=== PATIENT | female | born 1985 | race Caucasian/White ===

== ENCOUNTER 2017-10-12 17:36 | Observation (INO) ==
--- NOTE | 2017-10-12 17:54 | OB/GYN Progress Note ---
Date of Encounter: 10/12/17 Time of Encounter: 17:55 - Assessment and Plan (1) and not yet delivered in third trimester Current Visit: Yes Status: Acute (2) 31 weeks gestation of Current Visit: Yes Status: Acute (3) labor in second trimester with delivery in third trimester Current Visit: Yes Status: Acute We will watch and get urinalysis Qualifiers: Fetus number: single or unspecified fetus Qualified Code(s): O60.13X0 - labor second trimester with delivery third trimester, not applicable or unspecified Subjective - Subjective Interval history: Patient is a 32-year-old 6 para 4014 at 31-5/7 weeks who presented to labor and delivery complaining of lower back pain vaginal pressure since 4 AM yesterday. She states she has been having back pain all day yesterday and through the night this morning she started having a lot of vaginal pressure call the office and advised to come to labor and delivery patient states that she has had no leaking of fluid denies any dysuria urgency frequency and no vaginal discharge. Patient did admit that she used marijuana at the beginning of the and has not used anything recently. Patient's urine is very cloudy and patient states she does drink lots of fluids through the day. Patient states she typically does not show contractions because she has back labor and most of the contractions are in the lower back. Antepartum ROS: contractions Objective - Exam FHR: category 1 FHR comments: heart tones 140s reassuring no contraction seen at this time Auscultation: bilateral: normal Abdomen: Present: gravid Uterus: Present: firm Cervical dilation: closed Cervix effacement: thick station: ball
[2017-10-12 18:40] LABS: Bilirubin,Urine Negative (Negative); Blood,Urine Negative (Negative); Clarity,Urine Turbid (Clear); Color,Urine Yellow (Yellow); Glucose,Urine (UA) Normal (Normal); Ketones,Urine Negative (Negative); Leukocyte Esterase,Urine Negative (Negative); Nitrite,Urine Negative (Negative); Protein,Urine Negative (Neg-Trace); Specific Gravity,Urine 1.023 (1.010-1.025); Urobilinogen,Urine Normal (Normal)
[2017-10-12 18:44] LABS: Bacteria,Urine None Seen per hpf (None-Few); Hyaline Casts,Urine None Seen per lpf (None-Few); Squamous Epithelial Cell,Urine Many per lpf (None-Few); WBC,Urine 0-3 per hpf (0-3)
[2017-10-12] MEDS ORDERED: Terbutaline 1 MG/ML VIAL SQ ONE (18:45)
[2017-10-12 19:10] LABS: Amphetamine Screen,Urine Negative ng/mL (Cutoff=1000); Barbiturate Screen,Urine Negative ng/mL (Cutoff=200); Benzodiazepines Screen,Urine Negative ng/mL (Cutoff=200); Cannabinoid Screen,Urine Positive ng/mL (Cutoff = 50); Cocaine Screen,Urine Negative ng/mL (Cutoff= 300); Opiate Screen,Urine Negative ng/mL (Cutoff=300); Phencyclidine Screen,Urine Negative ng/mL (Cutoff=25)
--- NOTE | 2017-10-12 20:49 | OB/GYN Progress Note ---
Date of Encounter: 10/12/17 Time of Encounter: 20:30 - Assessment and Plan (1) and not yet delivered in third trimester Current Visit: Yes Status: Acute (2) 31 weeks gestation of Current Visit: Yes Status: Acute (3) labor in second trimester with delivery in third trimester Current Visit: Yes Status: Acute We will watch and get urinalysis Patient will be discharged home instructions to follow-up in the office labor precautions given Qualifiers: Fetus number: single or unspecified fetus Qualified Code(s): O60.13X0 - labor second trimester with delivery third trimester, not applicable or unspecified Subjective - Subjective Interval history: Patient states contractions spaced out after she got a dose of terbutaline no further contractions seen no further cervical change and patient was advised TO SEND HER HOME SINCE URINALYSIS IS NEGATIVE AND WE DO NOT SEE ANYTHING SUGGESTIVE OF LABOR. Antepartum ROS: contractions Objective - Vital Signs Vital Signs: Intake and Output 10/12/17 10/12/17 10/12/17 07:59 15:59 23:59 Other: Weight 103.4 kg Patient Weight 10/12/17 23:59 Weight 103.4 kg - Exam FHR: category 1 FHR comments: heart tones 140s reassuring no contraction seen - Labs Labs: Abnormal lab results Urine Clarity Turbid (Clear) A 10/12/17 18:00 Urine Microscopic RBC 3-5 per hpf (0-3) H 10/12/17 18:00 Ur Squamous Epith Cells Many per lpf (None-Few) H 10/12/17 18:00 U Marijuana (THC) Screen Positive ng/mL (Cutoff = 50) H 10/12/17 18:00
== END 2017-10-12 20:00 | disposition home or self-care (01) ==
LOC: 1NENULAB
PROVIDERS: ADMIT Advanced Practice Midwife; ATTEND Advanced Practice Midwife

== ENCOUNTER 2017-10-26 16:59 | Observation (INO) ==
[2017-10-26] MEDS ORDERED: Ringers Solution, Lactated 1,000 ML IVC SCH (17:45)
[2017-10-26 18:01] LABS: Basophils % 0.3 %; Eosinophils # 0.2 K/mcL (0.0-0.6); Eosinophils % 1.7 %; Hematocrit 36.8 % (35.3-44.9); Hemoglobin 13.2 g/dL (11.5-15.4); Immature Granulocytes % 0.4 % (0-4); Lymphocytes # 3.7 K/mcL (0.6-4.6); Lymphocytes % 33.4 %; Mean Corpuscular HGB Conc 35.9 g/dL (31.6-35.5); Mean Corpuscular Hemoglobin 32.4 pg (28.0-33.3); Mean Corpuscular Volume 90.2 fL (83.0-100.0); Monocytes # 0.7 K/mcL (0.0-1.3); Monocytes % 6.7 %; Neutrophils # 6.4 K/mcL (1.6-8.9); Platelet Count 262 K/mcL (140-400); Red Blood Count 4.08 M/mcL (3.82-4.97); Red Cell Distribution Width 13.1 % (11.5-14.5); Segmented Neutrophils % 57.5 %
[2017-10-26 18:03] LABS: Bilirubin,Urine Negative (Negative); Blood,Urine Negative (Negative); Clarity,Urine Clear (Clear); Color,Urine Yellow (Yellow); Glucose,Urine (UA) Normal (Normal); Ketones,Urine Negative (Negative); Leukocyte Esterase,Urine Negative (Negative); Nitrite,Urine Negative (Negative); Protein,Urine Negative (Neg-Trace); Specific Gravity,Urine 1.023 (1.010-1.025); Urobilinogen,Urine Normal (Normal)
[2017-10-26 18:29] LABS: Amphetamine Screen,Urine Negative ng/mL (Cutoff=1000); Barbiturate Screen,Urine Negative ng/mL (Cutoff=200); Benzodiazepines Screen,Urine Negative ng/mL (Cutoff=200); Cannabinoid Screen,Urine Positive ng/mL (Cutoff = 50); Cocaine Screen,Urine Negative ng/mL (Cutoff= 300); Opiate Screen,Urine Negative ng/mL (Cutoff=300); Phencyclidine Screen,Urine Negative ng/mL (Cutoff=25)
--- NOTE | 2017-10-26 19:02 | OB/GYN Progress Note ---
Date of Encounter: 10/26/17 Time of Encounter: 19:00 - Assessment and Plan (1) 33 weeks gestation of Current Visit: Yes Status: Acute (2) Decreased movement Current Visit: Yes Status: Acute IV fluid bolus Reactive NST. Prolonged monitoring x 4 hours after 1 noted decel; remainder of strip reactive. Patient states she would like to be discharged. Encouraged patient to continue to be aware of movements and complete kick counts. Patient to return with any decrease in movement. Follow up in office with routine care and PRN Qualifiers: Fetus number: single or unspecified fetus Trimester: third trimester Qualified Code(s): O36.8130 - Decreased movements, third trimester, not applicable or unspecified Subjective - Subjective Interval history: 32-year-old female at 33 weeks and 5 days presented to labor and delivery with chief complaint of decreased movement. Patient's has been compensated by polyhydramnios and asymmetrical IUGR. Patient states all day she has not had any good movements. She did try kick counts at home with no results. She decided to come in for monitoring. She denies any vaginal bleeding, cramping, loss of fluid. Antepartum ROS: no loss of fluid, no vaginal bleeding, no movement normal , no contractions Objective - Vital Signs Vital Signs: Intake and Output 10/26/17 10/26/17 10/26/17 07:59 15:59 23:59 Other: Weight 104 kg Patient Weight 10/26/17 23:59 Weight 104 kg - Exam FHR: auscultation normal, category 1 (Deceleration noted, majority of tracing category one) Auscultation: bilateral: normal Abdomen: Present: normal appearance, soft, gravid - Labs Labs: Abnormal lab results MCHC 35.9 g/dL (31.6-35.5) H 10/26/17 17:45 U Marijuana (THC) Screen Positive ng/mL (Cutoff = 50) H 10/26/17 17:45
== END 2017-10-26 21:12 | disposition home or self-care (01) ==
LOC: 1NENULAB
PROVIDERS: ADMIT Obstetrics & Gynecology; ATTEND Obstetrics & Gynecology

== ENCOUNTER 2017-12-02 05:27 | Inpatient (IN) ==
[2017-12-02] MEDS ORDERED: Ringers Solution, Lactated 1,000 ML IVC ONE (05:44)
[2017-12-02] MEDS ORDERED: Famotidine 20 MG/2 ML VIAL IVP ONE (05:44)
[2017-12-02] MEDS ORDERED: CeFAZolin Premix DUPLEX 2,000 MG/50 ML BAG IVPB ONE (05:44)
[2017-12-02] MEDS ORDERED: Metoclopramide 10 MG/2 ML VIAL IVP ONE (05:44)
[2017-12-02] MEDS ORDERED: Oxytocin 20 units/ LR 1000 mL 20 UNIT/1,000 ML BAG IVC SCH ×2 (05:45→11:55)
[2017-12-02] MEDS ORDERED: Ringers Solution, Lactated 1,000 ML IVC SCH (05:45)
[2017-12-02] MEDS ORDERED: Ringers Solution, Lactated 1,000 ML ONE ×2 (05:48→07:58)
--- NOTE | 2017-12-02 05:58 | OB/GYN History & Physical ---
Date of Encounter: 12/02/17 Time of Encounter: 05:50 Assessment and Plan (1) 39 weeks gestation of Current visit: Yes Status: Acute Admit to L&D for primary low transverse for breech presentation Labs per normal Anesthesia consult Antibiotics and other preoperative medications per usual Dr. Hooper present in house for surgery (2) Breech presentation of fetus Current visit: Yes Status: Acute Qualifiers: Fetus number: single or unspecified fetus Qualified Code(s): O32.1XX0 - Maternal care for breech presentation, not applicable or unspecified History of Present Illness Chief complaint: Admit for primary section HPI: Ms. Delgado is a 32 year old female at 39 weeks and 0 days gestation with an EDB of 12/09/17 dated by LMP. She presents for scheduled primary C- section due to breech presentation. Bedside ultrasound confirmed fetus is in breech presentation. She denies contractions, LOF, vaginal bleeding and reports positive movement. Her course is complicated by obesity. Labs: A- GBS - Hep B - HIV - Rubella equivocal Varicella immune Maternal Quad Screen normal Past Med Surg Social Fam HX - Past Medical History Medical history: asthma Psychiatric history: anxiety - Past Surgical History Surgical History: no surgical history - Social History Smoking Status: Former smoker Smokeless Tobacco Status: No Alcohol use: none Drug use: marijuana - Family History Mother Living Status: Still Living Hx Family Cardiac Disorders: Yes Hx Family Respiratory Disorders: No Hx Family Cancer: No Hx Family GI Disorders: No Hx Family Endocrine Disorder: Yes Hx Family Neuromuscular Disorders: No Hx Family Neurologic Disorders: No Hx Family HEENT Disorders: No Hx Family Autoimmune Disorders: No Obstetrical History - Pregnancies : 6 Para: 4 Term: 4 (1: 12/26/02, Male, 4lbs 2oz, ; 2: 10/20/2007, Female, 7lbs 2oz, ; 3: 10/24/2009, Male, 8lbs 12oz, ; 4: 05/10/2014, Male, 7lbs 1oz, ) : 0 Ab's: 1 (MAB 6wks) Livin Medications and Allergies Tylenol 650 mg PO PRN PRN 10/12/17 [History] Cetirizine HCl [Zyrtec] 1 tab PO DAILY 11/15/17 [History] Docusate [Colace] 1 tab PO TID 11/15/17 [History] valACYclovir [Valtrex] 1 tab PO DAILY 11/15/17 [History] 3 Allergy/AdvReac Type Severity Reaction Status Date / Time No Known Allergies Allergy Verified 11/15/17 13:53 Review of System OB All systems PM: reviewed and no additional remarkable complaints except as stated Exam - Constitutional Constitutional: well developed, well nourished, no acute distress, obese - HEENT HEENT: PERRL, Normocephaly, Mucus Membranes Moist - Neck Neck exam: full ROM - Lungs Respiratory exam: CTAB - Cardiovascular Cardiovascular exam: RRR, +S1, +S2 - Breasts Breast: bilateral: normal - Abdomen Abdomen: Present: bowel sounds normal, gravid - Extremities Extremities exam: radial pulses palpable and symmetrical - Uterus Uterus exam: Present: normal size, normal contour Results All other labs normal.
[2017-12-02 06:37] LABS: Amphetamine Screen,Urine Negative ng/mL (Cutoff=1000); Barbiturate Screen,Urine Negative ng/mL (Cutoff=200); Benzodiazepines Screen,Urine Negative ng/mL (Cutoff=200); Cannabinoid Screen,Urine Negative ng/mL (Cutoff = 50); Cocaine Screen,Urine Negative ng/mL (Cutoff= 300); Opiate Screen,Urine Negative ng/mL (Cutoff=300); Phencyclidine Screen,Urine Negative ng/mL (Cutoff=25)
[2017-12-02] MEDS ORDERED: *HR* FentaNYL (PF) 100 MCG/2 ML VIAL ONE (07:13)
[2017-12-02] MEDS ORDERED: Morphine Sulfate/PF 5mg/10mL Vial ONE (07:13)
[2017-12-02] MEDS ORDERED: *HR* Phenylephrine 10 MG/ML VIAL ONE (07:16)
[2017-12-02] MEDS ORDERED: *HR* Oxytocin 10 UNIT/ML VIAL IM ONE (07:17)
--- NOTE | 2017-12-02 07:37 | Anesthesia Evaluation PreOp ---
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 History: Denies Any Significant HX Other Medical History: Denies Any Significant HX Anesthesia History: No Prior Anesthetic Complications, Past Anesthesia (lap yelitza) : Yes (39 weeks, breech presentation) Alcohol Use: none Drug use: marijuana Medications and Allergies Tylenol 650 mg PO PRN PRN 10/12/17 [History] Cetirizine HCl [Zyrtec] 1 tab PO DAILY 11/15/17 [History] Docusate [Colace] 1 tab PO TID 11/15/17 [History] valACYclovir [Valtrex] 1 tab PO DAILY 11/15/17 [History] 3 Allergy/AdvReac Type Severity Reaction Status Date / Time No Known Allergies Allergy Verified 11/15/17 13:53 - Meds/Allergy Pre-op Review Medications Reviewed: Yes Allergies Reviewed: Yes Beta Blockers on Current Med List: No Anesthesia Results - Labs Laboratory Tests 07/12/17 09/06/17 11/15/17 11:12 10:20 13:50 WBC 12.0 H Hgb 13.4 Hct 37.6 Plt Count 298 PT INR APTT Sodium 135 L Potassium 3.9 Chloride 105 BUN 4 L Creatinine 0.53 L 11/15/17 14:35 WBC Hgb Hct Plt Count PT 11.2 INR 1.0 APTT 28.1 Sodium Potassium Chloride BUN Creatinine Anesthesia Exam O2 Sat Height 1.65 m Weight 106.594 kg Height: 65 Weight: 106 NPO (# of Hours): greater than 8 hours - HEENT Pupil (Motor): Pupils equal Mallampati: I Teeth: Normal Oral Opening: Greater than 3 - LEAD LEVEL DESIGNER LOC: Oriented LEAD LEVEL DESIGNER Motor: Normal RUE, Normal LUE, Normal RLE, Normal LLE, Normal Face LEAD LEVEL DESIGNER Sensory: Normal: RUE, LUE, RLE, LLE, Face - Cardiac Rhythm: Regular Murmur: None JVD: No Carotid Bruit: No - Pulmonary Breath Sounds: bilateral Clear Respiratory Effort: Symmetrical Anesthesia Assess/Plan ASA Score: 2 Modified Gary Scale for Level of Consciousness: Cooperative, oriented, and tranquil Anesthetic Plan: Regional Monitoring Plan: Standard Monitors Recovery Plan: PACU
[2017-12-02] MEDS ORDERED: Clindamycin 900 MG/50 ML 900 MG/50 ML IV.SOLN IVPB ONE (07:39)
[2017-12-02] MEDS ORDERED: MetroNIDAZOLE 500 MG/100 ML 500 MG/100 ML BAG IVPB ONE (07:39)
[2017-12-02] MEDS ORDERED: Ondansetron 4 MG/2 ML VIAL ONE (07:46)
[2017-12-02] MEDS ORDERED: EPHEDrine 50 MG/ML VIAL ONE (07:59)
[2017-12-02 08:03] LABS: Basophils % 0.3 %; Eosinophils # 0.3 K/mcL (0.0-0.6); Eosinophils % 2.2 %; Hematocrit 38.8 % (35.3-44.9); Hemoglobin 14.2 g/dL (11.5-15.4); Immature Granulocytes % 0.7 % (0-4); Lymphocytes # 3.4 K/mcL (0.6-4.6); Lymphocytes % 27.1 %; Mean Corpuscular HGB Conc 36.6 g/dL (31.6-35.5); Mean Corpuscular Hemoglobin 32.6 pg (28.0-33.3); Mean Corpuscular Volume 89.2 fL (83.0-100.0); Mean Platelet Volume 12.1 fL (9.4-12.4); Monocytes # 0.9 K/mcL (0.0-1.3); Monocytes % 7.3 %; Neutrophils # 7.8 K/mcL (1.6-8.9); Platelet Count 270 K/mcL (140-400); Red Blood Count 4.35 M/mcL (3.82-4.97); Red Cell Distribution Width 13.4 % (11.5-14.5); Segmented Neutrophils % 62.4 %
[2017-12-02] MEDS ORDERED: Ketorolac 30 MG/ML VIAL IVP PRN (08:36)
[2017-12-02] MEDS ORDERED: *HR* OxyCODONE Immed Rel 5 MG TABLET PO PRN (08:36)
[2017-12-02] MEDS ORDERED: *HR* Nalbuphine 20 MG/ML AMPUL IVP PRN (08:39)
--- NOTE | 2017-12-02 09:20 | OB/GYN Procedure Note ---
Section - Date of procedure: 12/02/17 Preop diagnosis: breech Post-op diagnosis: other (Double footling breech, anterior uterine varicosities) Procedure: section, primary low transverse Surgeon: Juliette Hooper Estimated blood loss (cc): 800 Was there an assistant front end manager present: Yes Income Tax Return Preparer: Jessy Jordan Manager Export: Chino Henao Anesthesia Type: Spinal section complications: other (Anterior low uterine varicosities) Disposition: L&D Recovery Room Specimens: Placenta, Cord segment - Infant (s) A Delivery Date: 12/02/17 Infant Delivery Time: 08:23 Presentation: footling breech (Double) Route of delivery: other Gender: Female Viability: Viable Pounds: 5 Ounces: 14 at 1 minute: 8 at 5 minutes: 9 Specimens collected: cord blood Placenta: uterine exploration, complete extraction Cord: 3 umbilical vessels - Narrative Narrative: The patient was brought to the operating room, sign in completed, given spinal anesthesia then prepped and draped in the usual sterile fashion. A timeout was completed. A Pfannenstiel skin incision was then made and sharply dissected down to the fascia. The fascia was then incised in the midline and extended bluntly and sharply bilaterally. 2 straight Alton clamps are placed on the inferior fascial edge and the fascia was bluntly and sharply dissected from rectus muscles, this was repeated superiorly. The rectus muscles were bluntly and sharply bissected. Peritoneum was bluntly entered and extended bluntly superiorly and inferiorly. A bladder blade was placed to protect the bladder. There were prominent varicosities in the lower uterine segment anteriorly. The Vesicouterine peritoneum was incised above these with Metzenbaum scissors and extended laterally then the bladder flap was reflected inferiorly and the bladder blade was replaced to protect the bladder. Active and aggressive bleeding was seen at this time. Hemostats were used to try to control it but unsuccessful. A low transverse incision was then made in the lower uterine segment down to the amnion. This was then bluntly extended laterally. The amnion was then bluntly entered, clear fluid was seen, and the infant was delivered in double footling breech presentation. The was suctioned on the operating field then was handed to the nursery care team. A cord segment was obtained. IV Pitocin was started. The placenta manually extracted intact. The uterine cavity was digitally inspected and noted to be clear and then was wiped clean with a moist lap sponge. Tubes and ovaries were inspected and found to be grossly normal. A ring clamp was used to dilate the cervix and then discarded off the operating field. Ring clamps were placed on the edge of the uterine incision and the uterine incision was closed using 0 Vicryl suture in a running locking fashion. A second imbricating layer completed the uterine closure. Good hemostasis was achieved. The pelvic cavity was copiously irrigated with sterile water and good hemostasis was again noted. Peritoneal edges and rectus muscles were inspected and good hemostasis was achieved. The fascia was then closed using an 0 PDS loop in a running nonlocking fashion. Subcutaneous tissue was irrigated with sterile water good hemostasis was achieved. The subcutaneous layer was closed with 2-0 Monocryl in a running nonlocking fashion. The skin was then closed with 4-0 Monoicryl in a subcuticular fashion. A FEMI dressing was placed. Issa was noted to be draining clear yellow urine at the end of the procedure. All sponge and instrument counts were correct at the end of the procedure
[2017-12-02] MEDS ORDERED: *HR* Ropivacaine/PF 0.2% 20 ML VIAL ONE (09:26)
[2017-12-02] MEDS ORDERED: Sennosides 8.6 MG TABLET PO PRN (11:55)
[2017-12-02] MEDS ORDERED: Ondansetron 4 MG/2 ML VIAL IVP PRN (11:55)
[2017-12-02] MEDS ORDERED: Metoclopramide 10 MG/2 ML VIAL IVP PRN (11:55)
[2017-12-02] MEDS ORDERED: Simethicone 80 MG TAB.CHEW PO PRN (11:55)
[2017-12-02] MEDS ORDERED: Rho Immune Globulin 1,500 UNIT SYRINGE IM ONE (11:55)
[2017-12-02] MEDS: *HR* OxyCODONE/APAP 5/325 TABLET PO PRN (20:09)
[2017-12-02] MEDS: Ibuprofen 600 MG TABLET PO SCH (20:10)
[2017-12-03] MEDS: *HR* OxyCODONE/APAP 5/325 TABLET PO PRN ×3 (01:52→11:17)
[2017-12-03 04:42] LABS: Basophils # 0.1 K/mcL (0.0-0.2); Basophils % 0.4 %; Eosinophils # 0.2 K/mcL (0.0-0.6); Eosinophils % 1.6 %; Hematocrit 33.3 % (35.3-44.9); Immature Granulocytes % 0.7 % (0-4); Lymphocytes # 3.4 K/mcL (0.6-4.6); Lymphocytes % 24.5 %; Mean Corpuscular HGB Conc 35.1 g/dL (31.6-35.5); Mean Corpuscular Hemoglobin 32.1 pg (28.0-33.3); Mean Corpuscular Volume 91.5 fL (83.0-100.0); Mean Platelet Volume 11.2 fL (9.4-12.4); Monocytes # 0.9 K/mcL (0.0-1.3); Monocytes % 6.6 %; Neutrophils # 9.2 K/mcL (1.6-8.9); Platelet Count 217 K/mcL (140-400); Red Blood Count 3.64 M/mcL (3.82-4.97); Red Cell Distribution Width 13.2 % (11.5-14.5); Segmented Neutrophils % 66.2 %
[2017-12-03 05:06] LABS: Hemoglobin 11.7 g/dL (11.5-15.4)
[2017-12-03] MEDS: Ibuprofen 600 MG TABLET PO SCH ×2 (05:36→11:17)
[2017-12-03 07:53] VITALS: BP 112/78
[2017-12-03] MEDS ORDERED: Prenatal Vit/FA 1 EACH TABLET PO SCH (09:00)
--- NOTE | 2017-12-03 09:25 | Discharge Summary ---
Date of Encounter: 12/03/17 Time of Encounter: 09:18 - Discharge Diagnosis (1) delivery delivered Priority: Primary Status: Acute Comments: Pt meeting all post-op milestones. She is ambulating without difficulty, tolerating a regular diet, voiding, and passing flatus. 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 She is requesting discharge home today. - Discharge Medications Prescriptions: OxyCODONE/APAP 5/325 [Percocet 5/325 MG] 1 each PO Q4HR PRN 5 Days #30 tablet PRN Reason: Moderate pain 4-6 Ibuprofen [Motrin] 600 mg PO Q6HR #60 tablet Docusate [Colace] 100 mg PO BID #60 capsule Home Medications: Cetirizine HCl [Zyrtec] 1 tab PO DAILY 11/15/17 [History] valACYclovir [Valtrex] 1 tab PO DAILY 11/15/17 [History] Docusate [Colace] 100 mg PO BID #60 capsule 12/03/17 [Rx] Ibuprofen [Motrin] 600 mg PO Q6HR #60 tablet 12/03/17 [Rx] OxyCODONE/APAP 5/325 [Percocet 5/325 MG] 1 each PO Q4HR PRN 5 Days #30 tablet [Rx] Simethicone [Gas-X] 80 mg PO TID PRN tab.chew 12/03/17 [Rx] Allergies/Adverse Reactions: 3 Allergy/AdvReac Type Severity Reaction Status Date / Time No Known Allergies Allergy Verified 11/15/17 13:53 Data Procedures and tests throughout hospitalization: Laboratory Tests 12/02/17 12/02/17 12/03/17 06:15 06:15 04:18 WBC 12.5 H 13.9 H RBC 4.35 3.64 L Hgb 14.2 11.7 D Hct 38.8 33.3 L MCV 89.2 91.5 MCH 32.6 32.1 MCHC 36.6 H 35.1 RDW 13.4 13.2 Plt Count 270 217 MPV 12.1 11.2 Immature Gran % 0.7 0.7 Seg Neutrophils % 62.4 66.2 Lymphocytes % 27.1 24.5 Monocytes % 7.3 6.6 Eosinophils % 2.2 1.6 Basophils % 0.3 0.4 Neutrophils # 7.8 9.2 H Lymphocytes # 3.4 3.4 Monocytes # 0.9 0.9 Eosinophils # 0.3 0.2 Basophils # 0.0 0.1 Urine Opiates Screen Negative Ur Barbiturates Screen Negative Ur Phencyclidine Scrn Negative Ur Amphetamines Screen Negative U Benzodiazepines Scrn Negative Urine Cocaine Screen Negative U Marijuana (THC) Screen Negative Labs on day of discharge: Labs from last 24 hours 12/03/17 04:18 WBC 13.9 H RBC 3.64 L Hgb 11.7 D Hct 33.3 L MCV 91.5 MCH 32.1 MCHC 35.1 RDW 13.2 Plt Count 217 MPV 11.2 Immature Gran % 0.7 Seg Neutrophils % 66.2 Lymphocytes % 24.5 Monocytes % 6.6 Eosinophils % 1.6 Basophils % 0.4 Neutrophils # 9.2 H Lymphocytes # 3.4 Monocytes # 0.9 Eosinophils # 0.2 Basophils # 0.1 Date of admission: 12/02/17 05:27 Discharging clinician: Janeen Ruelas Anticipated date of discharge: 12/03/17 - Patient Status Disposition: Home, Self-Care Condition: Good Functional capacity at discharge: independent ambulation Overall status at discharge: patient is progressing back to baseline - Discharge Instructions Follow Up With: Juliette Hooper MD [Partnered Physician] - - Diet and Activity Activity: increase activity as tolerated Diet: regular diet Hospital Course Reason for admission: section Delivery: section Episiotomy: none Laceration: none Other procedures: none complications: none Discharge diagnosis: IUP at term delivered [place] baby: female Hospital course: - Date of procedure: 12/02/17 Preop diagnosis: breech Post-op diagnosis: other (Double footling breech, anterior uterine varicosities) Procedure: section, primary low transverse Surgeon: Juliette Hooper Estimated blood loss (cc): 800 Was there an senior administrative assistant present: Yes Barrel Lathe Operator Outside: Jessy Jordan [employer]ad[employer] Plans Staff Officer: Chino Henao Anesthesia Type: Spinal section complications: other (Anterior low uterine varicosities) Disposition: L&D Recovery Room Specimens: Placenta, Cord segment - (s) Infant A Infant Delivery Date: 12/02/17 Delivery Time: 08:23 Presentation: footling breech (Double) Route of delivery: other Gender: Female Viability: Viable Pounds: 5 Ounces: 14 at 1 minute: 8 at 5 minutes: 9 Specimens collected: cord blood Placenta: uterine exploration, complete extraction Cord: 3 umbilical vessels Time Attestation: Total time spent providing and/or coordinating discharge services: Time Spent: Less than 30 minutes - VTE Documentation of Mechanical Device: Intermittent pneumatic compression device Exam - Constitutional Vitals: Temp Pulse Resp BP Pulse Ox 97.5 F L 85 20 112/78 89 12/03/17 07:52 12/03/17 07:52 12/03/17 07:52 12/03/17 07:52 12/03/17 07:52 General appearance IM: A&O X 3 - Respiratory Respiratory exam: Present: CTAB - Cardiovascular Cardiovascular exam IM: Present: RRR, +S1, +S2 - GI/Abdominal GI/Abdominal exam IM: soft Incision: dressed (dressing dry and intact) - External exam: normal external exam Uterine Tone: Firm - Extremities Exam Extremities exam IM: Present: normal inspection - Neurological Exam Neurological exam: normal gait, oriented X3 - Psychiatric Additional comments: reports good mood
[2017-12-03] MEDS ORDERED: Rho Immune Globulin 1,500 UNIT SYRINGE IM ONE (12:59)
== END 2017-12-03 13:30 | disposition home or self-care (01) | DRG 540 ==
LOC: 1NENULAB 05:27 → 1NENUOBS 11:54
PROVIDERS: ADMIT Obstetrics & Gynecology; ATTEND Obstetrics & Gynecology